=== PATIENT | female | born 1975 | race Caucasian/White ===

== ENCOUNTER 2021-07-09 17:37 | Inpatient (IN) | payer BC, SELFPAY ==
[~2021-07-09] VITALS: Ht 170.2 cm; Wt 108.4 kg
[2021-07-09 17:37] VITALS: BP_SYST 163
[~2021-07-09 17:37] MED LIST: BUPIVACAINE /EPINEPHRINE/PF 0.25% 30 ML VIAL INJ ONE; CLAR500T4 PO; DEXAMETHASONE SOD PHOSPHATE 4 MG/ML VIAL IVP ONE; ESCI10TA PO; IBUP-1969 PO; LR 1,000 ML IV.SOLN IV ONE; METOCLOPRAMIDE HCL 10 MG/2 ML VIAL IVP ONE; MIDAZOLAM HCL 5 MG/5 ML VIAL IVP ONE; ONDANSETRON HCL 4 MG/2 ML VIAL IVP ONE; PROPOFOL 200MG/ 20ML VIAL (DIPRIVAN) IV ONE; SEVOFLURANE 15 MIN GAS INH ONE; fentaNYL CITRATE/PF 100 MCG/2 ML AMP IVP ONE
--- NOTE | 2021-07-09 17:52 | NUR ---
Patient triaged and placed in er hallway. VSS and patient appears in no acute distress at this time. Accompanied by bl[facility], awaiting available bed, and MD notified of need for MSE.
--- NOTE | 2021-07-09 18:37 | NUR ---
ER Dr. DUENAS at bedside examining patient.
[2021-07-09] MEDS ORDERED: cefTRIAXone 1 GM in D5W 50 ML IV ONE (18:45)
[2021-07-09] MEDS ORDERED: IBUPROFEN 800 MG TABLET PO ONE (19:00)
[2021-07-09] MEDS ORDERED: MORPHINE SULFATE 10 MG/ML VIAL IM PRN (19:00)
[2021-07-09 19:07] LABS: BASOPHILS % (AUTO) 0.3 % (0.0-2.0); EOSINOPHILS # (AUTO) 0.1 K/uL (0.0-0.4); HEMATOCRIT 39.9 % (36-48); HEMOGLOBIN 13.2 g/dL (12.0-16.0); LYMPHOCYTES # (AUTO) 1.7 K/uL (1.0-5.5); LYMPHOCYTES % (AUTO) 16.8 % (20.5-51.5); MEAN CORPUSCULAR HEMOGLOBIN 28 pg (27-31); MEAN CORPUSCULAR HGB CONC 33 % (32-36); MEAN CORPUSCULAR VOLUME 84 fL (79.0-98.0); MONOCYTES # (AUTO) 0.5 K/uL (0.0-1.0); MONOCYTES % (AUTO) 4.7 % (1.7-9.3); NEUTROPHILS # (AUTO) 7.8 K/uL (1.8-7.7); NEUTROPHILS % (AUTO) 77.2 % (40.0-70.0); PLATELET COUNT (AUTO) 309 K/uL (130-430); RED BLOOD CELL COUNT(AUTO) 4.77 MIL/uL (4.2-6.2); RED CELL DISTRIBUTION WIDTH 14.2 % (9.0-15.0); WHITE BLOOD COUNT (AUTO) 10.1 K/uL (4.8-10.8)
[2021-07-09 19:11] LABS: CALCIUM 9.3 mg/dL (8.4-11.0); CREATININE 0.88 mg/dL (0.55-1.30)
--- NOTE | 2021-07-09 19:15 | NUR ---
Patient to ER bed 6 to gown for evaluation. Side rails up. Report given to LACIE GRIFFITHS.
[2021-07-09 19:17] LABS: ALBUMIN 3.9 g/dL (3.4-4.8); TOTAL BILIRUBIN 0.4 mg/dL (0.0-1.0)
[2021-07-09 19:23] LABS: INR 1.1 (0.8-1.2); PROTHROMBIN TIME 11.1 SECS (9.5-12.5)
--- NOTE | 2021-07-09 19:32 | NUR ---
radiology at bedside
--- NOTE | 2021-07-09 19:34 | NUR ---
pt bib [facility] ambulance for a open fx of the right lower extremity. pt is a&ox4 and states a pain scale of 8/10 when leg is moved. pt was walking down stairs and slipped and fell and twisted her ankle. xr is done and the read is positive for a fx.
[2021-07-09] MEDS ORDERED: cefTRIAXone 1 GM VIAL ONE (19:43)
--- NOTE | 2021-07-09 20:13 | NUR ---
pt used a bed side commode to urinate. - incident
--- NOTE | 2021-07-09 20:21 | NUR ---
pt is refusing morphine at this time
[2021-07-09] MEDS ORDERED: ALPR0.25 PO (20:31)
--- NOTE | 2021-07-09 20:31 | NUR ---
pt is full code
[2021-07-09 20:58] LABS: BILIRUBIN,URINE NEGATIVE (NEGATIVE); BLOOD, URINE 3+ (NEGATIVE); GLUCOSE,URINE NEGATIVE (NEGATIVE); KETONES,URINE 2+ (NEGATIVE); LEUKOCYTE ESTERASE ,URINE NEGATIVE (NEGATIVE); NITRITE, URINE NEGATIVE (NEGATIVE); PROTEIN URINE TRACE (NEGATIVE); UROBILINOGEN,URINE 0.2 (0.2-1.0)
[2021-07-09 21:08] LABS: CLARITY/URINE HAZY (CLEAR); COLOR,URINE STRAW (YELLOW)
--- NOTE | 2021-07-09 21:10 | NUR ---
ADMIT NOTE Received pt from ER to the floor with a diagnosis of right open trimalleolar fracture. Admission process initiated. patient oriented to pain management, safety and call light-teach back done.
--- NOTE | 2021-07-09 21:15 | NUR ---
Transfer to [facility]. IV present no sign or symptom of infiltration.
[2021-07-09 21:19] VITALS: BP_SYST 135
[2021-07-09 21:27] LABS: BACTERIA,URINE MANY /HPF (None Seen); WBC,URINE 0-3 /HPF (0-3)
[2021-07-09 21:28] LABS: CALCIUM OXALATE CRYSTALS,UR None Seen /HPF (None Seen); CALCIUM PHOSPHATE CRYSTALS,UR None Seen /HPF (None Seen); COARSE GRANULAR CASTS,URINE None Seen /LPF (None Seen); FINE GRANULAR CASTS,URINE None Seen /LPF (None Seen); HYALINE CASTS, URINE None Seen /LPF (None Seen); MUCUS,URINE None Seen /LPF (None Seen); OTHER CASTS, URINE None Seen /LPF (None Seen); OTHER CRYSTALS,URINE None Seen /HPF (None Seen); TRICHOMONAS,URINE None Seen /HPF (None Seen); TRIPLE PHOSPHATE CRYSTAL,UR None Seen /HPF (None Seen); URIC ACID CRYSTALS,URINE None Seen /HPF (None Seen); URINE AMORPHOUS PHOSPHATES None Seen /HPF (None Seen); URINE AMORPHOUS URATE None Seen /HPF (None Seen); WAXY CASTS,URINE None Seen /LPF (None Seen); YEAST,URINE None Seen /HPF (None Seen)
--- NOTE | 2021-07-09 21:45 | NUR ---
INITIAL NOTES: pt is alert, awake, oriented x4, s/p fall from stair with right ankle fracture. no complain of pain on right foot when not move. stable vital sign. pt has dressing to her right foot with bloody drainage, support by soft splint. iv lock to right ac gauge 20 intact and patent. bedrest, explain plan of care, orient to room and call light, pre-op. pt verbalized understanding. needs attended, call light in reach side rails up. low bed position. bed alarm on. will follow-up.
--- NOTE | 2021-07-09 22:31 | NUR ---
md round: seen by dr. maxwell, explain procedure for tomorrow surgery. npo after midnight.
[2021-07-10] VITALS: BP_SYST 128
--- NOTE | 2021-07-10 | NUR ---
pt is awake, alert. vital sign stable. complain of pain. not distress, needs attended, call light in reach. will follow-up.
[2021-07-10] MEDS: IBUPROFEN 800 MG TABLET PO PRN ×3 (00:13→17:33)
--- NOTE | 2021-07-10 06:18 | NUR ---
closing: pt is resting, no pain, stable, npo since midnight. needs attended the whole shift. will give sbar reporting to am rn.
[2021-07-10 08:18] VITALS: BP_SYST 143
--- NOTE | 2021-07-10 08:30 | NUR ---
Opening note Patient is resting in bed A&O x4 ,complains of some pain in the right ankle, will provide pain medications. No signs or symptoms of respiratory distress, IV is patent no signs or symptoms on infiltration. Educated patietn on plan of care, patient verbalized understanding. Bed is in lowest position call light within reach, fall and aspiration precautions are in place will continue to monitor.
--- NOTE | 2021-07-10 10:05 | NUR ---
RN note Patient was taken to surgery, is in stable condition.
[2021-07-10] MEDS ORDERED: POLYMYXIN 500,000/BACIT.10,000 UNITS in NS IRR 1 L IR ONE (10:50)
[2021-07-10] MEDS ORDERED: ACETAMINOPHEN I.V. 1000 MG 100 ML IV ONE (10:50)
[2021-07-10] MEDS ORDERED: HYDROmorphone 2 MG/ML VIAL IVP PRN ×2 (11:00)
[2021-07-10] MEDS ORDERED: MEPERIDINE HCL/PF 25 MG/ML DISP.SYRIN IVP PRN (11:00)
[2021-07-10] MEDS ORDERED: LR 1,000 ML IV SCH (11:00)
[2021-07-10] MEDS ORDERED: HYDROmorphone 1 MG/ML INJ. CARTRIDGE IVP PRN (11:00)
[2021-07-10] MEDS ORDERED: ONDANSETRON HCL 4 MG/2 ML VIAL ONE (13:07)
[2021-07-10] MEDS ORDERED: ONDANSETRON HCL 4 MG/2 ML VIAL IVP ONE (13:15)
[2021-07-10] MEDS ORDERED: DEXAMETHASONE SOD PHOSPHATE 4 MG/ML VIAL ONE (13:23)
--- NOTE | 2021-07-10 13:30 | NUR ---
Rn note Patient is back from surgery, does not complain of pain, complains of nausea, provided ice chips and water. Will inform MD.
[2021-07-10 16:00] VITALS: BP_SYST 147
--- NOTE | 2021-07-10 17:58 | NUR ---
PAGED ABRAHAM DAMIAN PAGED AT [phone]HANES DIEHL [employer].
[2021-07-10 19:25] VITALS: BP_SYST 153
--- NOTE | 2021-07-10 19:40 | NUR ---
iNITIAL NOTES: pt is alert, awake, oriented x4, s/p ORIF of right ankle. stable vital sign. pt has dressing to her right foot with with splints. iv lock to right ac gauge 20 intact and patent. pt is assisted back to bed by SNA. tolerate well. explain plan of care, instructed how to use IS. pt verbalized understanding. needs attended, call light in reach side rails up. low bed position. bed alarm on. will follow-up.
--- NOTE | 2021-07-10 22:46 | NUR ---
dr. marino call back covering for dr. maxwell, report to pt is nauseated and vomiting after sx. md order zofran 80mg odt [id number] ands protonix 40mg ivp daily. statr one tonight.
[2021-07-10] MEDS ORDERED: PANTOPRAZOLE SODIUM 40 MG/VIAL (PROTONIX) IVP ONE (23:00)
[2021-07-10] MEDS ORDERED: ONDANSETRON 4 MG ODT TAB PO PRN (23:00)
[2021-07-11] VITALS: BP_SYST 134
--- NOTE | 2021-07-11 | NUR ---
pt is resting, no sign of pain, not distress, stable vital sign, needs attended. call light with the pt.
--- NOTE | 2021-07-11 07:03 | NUR ---
closing: pt is awake, alert. c/o headache, stable, room air. needs attended the whole shift. will give sbar reporting to am rn.
--- NOTE | 2021-07-11 07:20 | NUR ---
OPENING NOTES: RECEIVED REPORT FROM PATTERN PAINTER NURSE. PATIENT IS AWAKE, ALERT LAYING DOWN IN BED. TOLERATED OXYGEN PN ROOM AIR WITH NO DISTRESS NOTED. IV LINE PATENT AND INTACT WITH NO INFILTRATION NOTED. PATIENT STABLE AT THIS TIME. SAFETY, FALL, AND ASPIRATION PRECAUTIONS ARE IN PLACE. BED LOCKED IN LOWEST POSITION AND CALL LIGHT IN REACH. WILL CONTINUE TO MONITOR PATIENT FOR ANY CHANGES.
[2021-07-11 08:00] VITALS: BP_SYST 147
[2021-07-11] MEDS: IBUPROFEN 800 MG TABLET PO PRN (08:35)
[2021-07-11] MEDS ORDERED: PANTOPRAZOLE SODIUM 40 MG/VIAL (PROTONIX) IVP SCH (09:00)
--- NOTE | 2021-07-11 10:53 | NUR ---
Nutrition Update Dawson Scale 16 noted. Pt admitted for R open trimalleolar fracture. Diet: regular BMI: 37.4 kg/m2 RD to follow per nutrition care standards.
[2021-07-11 11:55] VITALS: BP_SYST 140
[2021-07-11 12:00] VITALS: BP_SYST 142
--- NOTE | 2021-07-12 08:11 | NUR ---
Disposition 01
== END 2021-07-11 16:15 | disposition home or self-care (01) | DRG 494 ==
LOC: SED 17:37 → SMU 18:54
PROVIDERS: ADMIT Orthopaedic Surgery; ATTEND Orthopaedic Surgery
PROC: 0QSG04Z Reposition Right Tibia with Internal Fixation Device, Open Approach (ICD-10-PCS; 2021-07-10)
PROC: 0QSJ04Z Reposition Right Fibula with Internal Fixation Device, Open Approach (ICD-10-PCS; principal; 2021-07-10 10:00)
DX: S82.851A Displaced trimalleolar fracture of right lower leg, initial encounter for closed fracture (principal); W01.0XXA Fall on same level from slipping, tripping and stumbling without subsequent striking against object, initial encounter; Z20.822 Contact with and (suspected) exposure to COVID-19; Y93.89 Activity, other specified; Y92.89 Other specified places as the place of occurrence of the external cause; Y99.8 Other external cause status
CPT/HCPCS: 36415; 71045; 76000; 80053; 81000; 84702; 85025; 85610-TC; 85730-TC; 86886; 86900; 86901; 87081; 87086; 93005; 96374; 96375; 99285; C9113; J0131; J0696; J1100; J2250; J2270; J2405; J2704; J2765; J3010; J3490; J7120; Q0162